=== PATIENT | male | born 1960 | race Caucasian/White ===

== ENCOUNTER 2018-09-25 16:01 | Emergency (ER) | payer MEDICARE ==
[2018-09-25 16:15] VITALS: O2SAT 98
[2018-09-25] MEDS ORDERED: Catapres 0.1 MG PO ONE (16:22)
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
[2018-09-25] MEDS ORDERED: Catapres 0.1 MG ONE (16:24)
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
[2018-09-25 17:05] VITALS: BP 152/94; PULSE 72
== END 2018-09-25 17:27 | disposition home or self-care (01) ==
LOC: ED 16:01
DX: I10 Essential (primary) hypertension (principal); I16.0 Hypertensive urgency; J44.9 Chronic obstructive pulmonary disease, unspecified; E11.9 Type 2 diabetes mellitus without complications; Z87.442 Personal history of urinary calculi; Z79.899 Other long term (current) drug therapy; Z95.0 Presence of cardiac pacemaker
CPT/HCPCS: 70450; 82962; 99284; A9270-GY

== ENCOUNTER 2018-12-26 22:30 | Emergency (ER) | payer MEDICARE ==
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
[2018-12-26] MEDS ORDERED: XYLOCAINE 1%/Epi 1:100000 MDV 20 ML ONE (22:47)
[2018-12-26] MEDS ORDERED: NORCO 5/325 MG PO ONE (23:05)
[2018-12-26] MEDS ORDERED: KEFLEX 500 MG PO ONE (23:05)
[2018-12-26] MEDS ORDERED: KEFLEX 500 MG ONE (23:25)
[2018-12-26] MEDS ORDERED: NORCO 5/325 MG ONE (23:26)
[2018-12-26] MEDS ORDERED: Adacel Vial IM ONE ×2 (23:37→23:45)
[2018-12-27 00:19] VITALS: BP 129/67; PULSE 79; O2SAT 98
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
== END 2018-12-27 00:18 | disposition home or self-care (01) ==
LOC: ED 22:30
DX: S61.421A Laceration with foreign body of right hand, initial encounter (principal); S64.91XA Injury of unspecified nerve at wrist and hand level of right arm, initial encounter; W22.8XXA Striking against or struck by other objects, initial encounter
CPT/HCPCS: 12001; 73130; 90471; 90715; 99284; A9270-GY

== ENCOUNTER 2019-01-02 20:54 | Observation (INO) | payer MEDICARE ==
--- NOTE | 2019-01-02 23:16 | ERPHSYRPT ---
- History of Present Illness Time Seen by Provider: 01/02/19 23:16 Source: patient, family Exam Limitations: no limitations Physician History: 58 y/o right handed diabetic white male known to be due to last visit on . i treated him here in this ED. Because of his diabetes and the type of wound pt sustained to right hand, i opted to not close right hand wound tightly only using a single mid lac staple. . no retained fb seen on that xray after wooden splinter. pt was given im injection of antibx and sent home with instructions to milk wound and compress pocket 2 to 3 times daily. no ointments or creams and take meds as prescribed. he was told to return to ED if sx worsened. he states he has increased redness, swelling and noticed pus. Timing/Duration: day(s) (couple of days) Severity: moderate Modifying Factors: Improves With: movement Associated Symptoms: No nausea, No vomiting, No abdominal pain, No shortness of breath, No chills, No fever, No malaise, No syncope Allergies/Adverse Reactions: digoxin Allergy (Mild, Verified 12/26/18 22:55) Home Medications: Amlodipine Besylate 2.5 mg PO DAILY 08/10/13 [History] Escitalopram Oxalate [Lexapro] 20 mg PO DAILY 09/25/18 [History] Gabapentin 300 mg PO DAILY 09/25/18 [History] Linagliptin [Tradjenta] 5 mg PO DAILY 09/25/18 [History] glipiZIDE [Glipizide] 5 mg PO DAILY 09/25/18 [History] Hx Tetanus, Diphtheria Vaccination/Date Given: No Hx Influenza Vaccination/Date Given: Yes Hx Pneumococcal Vaccination/Date Given: No - Review of Systems Constitutional: No Symptoms Eyes: No Symptoms Ears, Nose, & Throat: No Symptoms Respiratory: No Symptoms Cardiac: No Symptoms Abdominal/Gastrointestinal: No Symptoms Genitourinary Symptoms: No Symptoms Musculoskeletal: No Symptoms Skin: Cellulitis (right hand), Induration, Other (swelling right hand) Neurological: No Symptoms Psychological: No Symptoms Endocrine: No Symptoms Hematologic/Lymphatic: No Symptoms Immunological/Allergic: No Symptoms All Other Systems: Reviewed and Negative - Past Medical History Pertinent Past Medical History: Yes Neurological History: Stroke ENT History: No Pertinent History Cardiac History: Arrhythmia Respiratory History: COPD Endocrine Medical History: Diabetes Type II Musculoskeletal History: No Pertinent History GI Medical History: No Pertinent History History: Other Psycho-Social History: No Pertinent History Male Reproductive Disorders: No Pertinent History Other Medical History: kidney stone - Past Surgical History Past Surgical History: Yes Neuro Surgical History: No Pertinent History Cardiac: Pacemaker, Other Respiratory: No Pertinent History Gastrointestinal: No Pertinent History Genitourinary: No Pertinent History Musculoskeletal: No Pertinent History Male Surgical History: No Pertinent History Other Surgical History: hernia repair, HEART SURGERY WHEN HE WAS 6YRS OLD - Social History Smoking Status: Never smoker Exposure to second hand smoke: Yes Drug Use: none Patient Lives Alone: Yes - Nursing Vital Signs Nursing Vital Signs: Initial Vital Signs Pulse Rate 86 01/02/19 23:13 Respiratory Rate 16 01/02/19 23:13 Blood Pressure 180/90 01/02/19 23:13 O2 Sat by Pulse Oximetry 97 01/02/19 23:13 Pain Scale Pain Intensity 8 - Physical Exam General Appearance: no apparent distress, alert Eye Exam: PERRL/EOMI, eyes nml inspection Ears, Nose, Throat Exam: normal ENT inspection, moist mucous membranes Neck Exam: normal inspection, non-tender, supple, full range of motion Respiratory Exam: normal breath sounds, lungs clear, airway intact, No chest tenderness, No respiratory distress Cardiovascular Exam: regular rate/rhythm, normal heart sounds, normal peripheral pulses Gastrointestinal/Abdomen Exam: soft, normal bowel sounds, No tenderness, No guarding Rectal Exam: not done Back Exam: normal inspection, normal range of motion, No CVA tenderness, No vertebral tenderness Extremity Exam: pelvis stable, inflammation, swelling, tenderness, other (above right hand with localized cellulitis. single staple removed and pus expressed out. 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, normal mood/affect Skin Exam: other (redness, swelling, cellulitis right hand) SpO2 Interpretation: normal O2 Delivery: Room Air Ordered Tests: Active Orders 24 hr Category Date Time Status IV Insertion STAT Care 01/02/19 23:43 Active Wound Care STAT Care 01/02/19 23:39 Active CULTURE,WOUND Stat Lab 01/03/19 01:41 Ordered Transfer Order Routine Transfer 01/03/19 Ordered Medication Summary Discontinued Medications Generic Name Dose Route Start Last Admin Trade Name Freq PRN Reason Stop Dose Admin Gabapentin 300 mg 01/03/19 02:42 Neurontin 300 Mg PO 01/03/19 02:43 STAT ONE Hydromorphone HCl 1 mg 01/02/19 23:43 01/03/19 02:05 Hydromorphone 1 Mg/Ml Ampule IV 01/02/19 23:44 Not Given STAT ONE Hydromorphone HCl Confirm 01/03/19 00:59 Hydromorphone 1 Mg/Ml Ampule Administered 01/03/19 01:00 Dose 1 mg .ROUTE .STK-MED ONE Metronidazole 500 mg in 100 mls @ 200 mls/hr 01/02/19 23:40 01/03/19 02:03 Flagyl 500 Mg Ivpb IV 01/03/19 00:09 200 mls/hr STAT STA 200 mls/hr Administration Sodium Chloride 1,000 mls @ 999 mls/hr 01/02/19 23:43 01/03/19 01:10 Sodium Chloride 0.9% 1000 Ml IV 01/03/19 00:43 999 mls/hr .Q1H1M STA Administration Ampicillin Sodium/Sulbactam Sodium 3 gm in 100 mls @ 200 mls/hr 01/02/19 23: 40 01/03/19 01:13 Unasyn 3gm / Nacl 100ml IV 01/03/19 00:09 200 mls/hr STAT STA 200 mls/hr Administration Sodium Chloride Confirm 01/03/19 00:59 Sodium Chloride 0.9% 1000 Ml Administered 01/03/19 01:00 Dose 1,000 mls @ ud .ROUTE .STK-MED ONE Ampicillin Sodium/Sulbactam Sodium Confirm 01/03/19 01:00 Unasyn 3gm / Nacl 100ml Administered 01/03/19 01:01 Dose 3 gm in 100 mls @ ud .ROUTE .STK-MED ONE Metronidazole Confirm 01/03/19 01:55 Flagyl 500 Mg Ivpb Administered 01/03/19 01:56 Dose 500 mg in 100 mls @ ud IV .STK-MED ONE Morphine Sulfate 4 mg 01/03/19 01:17 01/03/19 02:01 Morphine Sulfate 4 Mg Inj IV 01/03/19 01:18 4 mg STAT ONE Administration Morphine Sulfate Confirm 01/03/19 01:54 Morphine Sulfate 4 Mg Inj Administered 01/03/19 01:55 Dose 4 mg .ROUTE .STK-MED ONE Ondansetron HCl 4 mg 01/02/19 23:43 01/03/19 01:10 Zofran 4 Mg/2 Ml Vial IV 01/02/19 23:44 4 mg STAT ONE Administration Ondansetron HCl Confirm 01/03/19 00:59 Zofran 4 Mg/2 Ml Vial Administered 01/03/19 01:00 Dose 4 mg .ROUTE .STK-MED ONE Lab/Rad Data: Laboratory Result Diagrams 01/02/19 00:45 01/02/19 00:45 Laboratory Results 01/02/19 01/02/19 Range/Units 00:45 00:45 WBC 7.8 (4.0-10.5) K/mm3 RBC 4.34 (4.1-5.6) M/mm3 Hgb 12.1 L (12.5-18.0) gm/dl Hct 37.1 L (42-50) % MCV 85.5 (78-100) fl MCH 27.8 (26-32) pg MCHC 32.6 (32-36) g/dl RDW 14.0 (11.5-14.0) % Plt Count 329 (150-450) K/mm3 MPV 10.2 H (6-9.5) fl Sodium 143 (137-145) mmol/L Potassium 3.6 (3.5-5.1) mmol/L Chloride 106 (98-107) mmol/L Carbon Dioxide 27 (22-30) mmol/L Anion Gap 13.7 (5-15) MEQ/L BUN 13 (9-20) mg/dL Creatinine 0.75 (0.66-1.25) mg/dL Estimated GFR > 60.0 ML/MIN Glucose 202 H (74-106) mg/dL Calcium 9.6 (8.4-10.2) mg/dL Total Bilirubin 0.50 (0.2-1.3) mg/dL AST 20 (17-59) U/L ALT 28 (0-50) U/L Alkaline Phosphatase 88 (38-126) U/L Serum Total Protein 7.5 (6.3-8.2) g/dL Albumin 3.9 (3.5-5.0) g/dL - Progress Progress: improved Progress Note: 01/03/19 02:[address] guzman. i reviewed pt hx, condition, lab results. she accepts pt for observation Discussed with .: Veena Counseled pt/family regarding: lab results, diagnosis - Departure Departure Disposition: Observation Clinical Impression: Cellulitis and abscess of hand Condition: Stable Critical Care Time: No Referrals: NATHALY LAZAR [Primary Care Provider] -
[2019-01-02] MEDS ORDERED: Unasyn 3GM / NaCl 100ML 3 GM/100 ML IVPB IV STA (23:40)
[2019-01-02] MEDS ORDERED: FLAGYL 500 MG IVPB 500 MG/100 ML BAG IV STA (23:40)
[2019-01-02] MEDS ORDERED: Hydromorphone 1 mg/ml Ampule IV ONE (23:43)
[2019-01-02] MEDS ORDERED: Zofran 4 MG/2 ML VIAL IV ONE (23:43)
[2019-01-02] MEDS ORDERED: Sodium Chloride 0.9% 1000 ML 1,000 ML IV STA (23:43)
[2019-01-03] MEDS ORDERED: Sodium Chloride 0.9% 1000 ML 1,000 ML ONE (00:59)
[2019-01-03] MEDS ORDERED: Hydromorphone 1 mg/ml Ampule ONE (00:59)
[2019-01-03] MEDS ORDERED: Zofran 4 MG/2 ML VIAL ONE (00:59)
[2019-01-03] MEDS ORDERED: Unasyn 3GM / NaCl 100ML 3 GM/100 ML IVPB ONE (01:00)
[2019-01-03] MEDS ORDERED: MORPHINE SULFATE 4 MG INJ IV ONE (01:17)
[2019-01-03 01:26] LABS: Hematocrit 37.1 % (42-50); Hemoglobin 12.1 gm/dl (12.5-18.0); Mean Cell Volume 85.5 fl (78-100); Mean Corpuscular Hgb Concent. 32.6 g/dl (32-36); Mean Platelet Volume 10.2 fl (6-9.5); Platelet Count 329 K/mm3 (150-450); Red Blood Count 4.34 M/mm3 (4.1-5.6); White Blood Count 7.8 K/mm3 (4.0-10.5)
[2019-01-03 01:39] LABS: ALBUMIN 3.9 g/dL (3.5-5.0); ALKALINE PHOSPHATASE 88 U/L (38-126); ANION GAP 13.7 MEQ/L (5-15); BLOOD UREA NITROGEN 13 mg/dL (9-20); CHLORIDE 106 mmol/L (98-107); Calcium 9.6 mg/dL (8.4-10.2); Carbon Dioxide 27 mmol/L (22-30); Creatinine 1 0.75 mg/dL (0.66-1.25); Glucose 202 mg/dL (74-106); Potassium 3.6 mmol/L (3.5-5.1); SGOT/AST 20 U/L (17-59); SGPT/ALT 28 U/L (0-50); SODIUM 143 mmol/L (137-145); Total Protein 7.5 g/dL (6.3-8.2)
[2019-01-03] MEDS ORDERED: MORPHINE SULFATE 4 MG INJ ONE (01:54)
[2019-01-03] MEDS ORDERED: FLAGYL 500 MG IVPB 500 MG/100 ML BAG IV ONE (01:55)
[2019-01-03 02:04] LABS: Mean Corpuscular Hemoglobin 27.8 pg (26-32)
[2019-01-03] MEDS ORDERED: NEURONTIN 300 MG PO ONE (02:42)
[2019-01-03] MEDS ORDERED: MORPHINE SULFATE 4 MG INJ IV PRN (03:05)
[2019-01-03] MEDS ORDERED: TYLENOL 325 MG PO PRN (03:05)
[2019-01-03] MEDS ORDERED: Sodium Chloride 0.9% 1000 ML 1,000 ML IV SCH (03:05)
[2019-01-03] MEDS ORDERED: Zofran 4 MG/2 ML VIAL IV PRN (03:05)
[2019-01-03 03:55] LABS: Eosinophil 4 % (0.00-3.0); Lymphocytes 21 % (24-44); Monocyte 8 % (0.0-12.0); Neutrophils 67 % (36.-66.); Platelet Estimate NORMAL (NORMAL); Total Cells Counted 100
[2019-01-03] MEDS ORDERED: FLAGYL 500 MG IVPB 500 MG/100 ML BAG IV SCH (06:00)
[2019-01-03 06:20] LABS: Hemoglobin 10.6 gm/dl (12.5-18.0); Mean Cell Volume 86.2 fl (78-100); Mean Corpuscular Hgb Concent. 32.1 g/dl (32-36); Mean Platelet Volume 9.8 fl (6-9.5); Platelet Count 304 K/mm3 (150-450); Red Blood Count 3.83 M/mm3 (4.1-5.6); Red Cell Distribution Width 13.8 % (11.5-14.0); White Blood Count 7.4 K/mm3 (4.0-10.5)
[2019-01-03 06:23] LABS: Mean Corpuscular Hemoglobin 27.6 pg (26-32)
[2019-01-03] MEDS: Unasyn 3GM / NaCl 100ML 3 GM/100 ML IVPB IV SCH ×2 (06:25→11:36)
[2019-01-03 07:03] LABS: ALBUMIN 3.5 g/dL (3.5-5.0); ALKALINE PHOSPHATASE 77 U/L (38-126); ANION GAP 13.5 MEQ/L (5-15); BLOOD UREA NITROGEN 13 mg/dL (9-20); CHLORIDE 108 mmol/L (98-107); Calcium 8.8 mg/dL (8.4-10.2); Carbon Dioxide 26 mmol/L (22-30); Creatinine 1 0.76 mg/dL (0.66-1.25); Glucose 159 mg/dL (74-106); SGOT/AST 19 U/L (17-59); SGPT/ALT 25 U/L (0-50); SODIUM 143 mmol/L (137-145); Total Protein 6.7 g/dL (6.3-8.2)
[2019-01-03 07:19] LABS: ATYPICAL LYMPHS 2 %; BAND 5 % (0.0-2.0); Basophil 1 % (0.0-1.0); Eosinophil 8 % (0.00-3.0); Lymphocytes 26 % (24-44); Monocyte 4 % (0.0-12.0); Neutrophils 54 % (36.-66.); Total Cells Counted 100
[2019-01-03 07:20] LABS: Platelet Estimate NORMAL (NORMAL)
[2019-01-03 07:21] LABS: Granulocyte Absolute (ANC) 4.36 (1.4-6.9)
[2019-01-03] MEDS ORDERED: NovoLOG Insulin SQ PRN (09:27)
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
[2019-01-03] MEDS ORDERED: NEURONTIN 300 MG PO SCH (10:00)
[2019-01-03] MEDS ORDERED: Januvia 50 MG PO SCH (12:00)
[2019-01-03] MEDS ORDERED: Lexapro 10 MG PO SCH (12:00)
[2019-01-03] MEDS ORDERED: NORVASC 5 MG PO SCH (12:00)
[2019-01-03 12:43] VITALS: BP 158/80; PULSE 71; O2SAT 95
[2019-01-03] MEDS ORDERED: Glucotrol 5 MG PO SCH (16:30)
[2019-01-04] MEDS ORDERED: NON-FORMULARY ITEM (Amlodipine Besylate [Norvasc] 2.5 MG) PO SCH (10:00)
[2019-01-04] MEDS ORDERED: NON-FORMULARY ITEM (Escitalopram Oxalate [Lexapro] 20 MG) PO SCH (10:00)
== END 2019-01-03 13:30 | disposition home or self-care (01) ==
LOC: ED 20:54 → MED SURG 01-03 02:52
PROVIDERS: ADMIT Internal Medicine; ATTEND Internal Medicine
DX: L03.113 Cellulitis of right upper limb (principal); L02.511 Cutaneous abscess of right hand; E11.9 Type 2 diabetes mellitus without complications; I10 Essential (primary) hypertension; Z60.9 Problem related to social environment, unspecified; F17.200 Nicotine dependence, unspecified, uncomplicated; Z79.899 Other long term (current) drug therapy
CPT/HCPCS: 36000; 36415; 80053; 82962; 85025; 87040; 87070; 87077; 96374; 99285; G0378; J0295; J1170; J2270; J2405; A9270-GY

== ENCOUNTER 2019-02-10 17:16 | Emergency (ER) | payer MEDICARE ==
[2019-02-10 17:57] LABS: BASOPHIL % 1.6 % (0.0-0.4); Basophil (Absolute #) 0.12 (0-0.4); Eosinophil % 5.2 % (0.00-5.0); Eosinophil (Absolute #) 0.38 (0-0.5); Granulocyte Absolute (ANC) 3.97 (1.4-6.9); Granulocytes % 54.5 % (36.0-66.0); Hematocrit 41.8 % (42-50); Hemoglobin 14.1 gm/dl (12.5-18.0); Lymphocyte (Absolute #) 2.07 (1.0-4.6); Lymphocytes % 28.4 % (24.0-44.0); Mean Cell Volume 85.7 fl (78-100); Mean Corpuscular Hemoglobin 28.9 pg (26-32); Mean Corpuscular Hgb Concent. 33.7 g/dl (32-36); Mean Platelet Volume 10.4 fl (6-9.5); Monocyte (Absolute #) 0.75 (0.0-1.3); Monocytes % 10.3 % (0.0-12.0); Platelet Count 243 K/mm3 (150-450); Red Blood Count 4.88 M/mm3 (4.1-5.6); Red Cell Distribution Width 15.6 % (11.5-14.0); White Blood Count 7.3 K/mm3 (4.0-10.5)
--- NOTE | 2019-02-10 18:00 | ERPHSYRPT ---
- History of Present Illness Source: patient Exam Limitations: no limitations Patient Subjective Stated Complaint: Pt states "About 3 oclock, I went to the [facility] and that lady said I needed to come to the ER. I went home, and had my dog to take care of and then I came here." Triage Nursing Assessment: Pt presetned through the front and placed in room 5. PT is alert and oriented X 3, skin pwd Pt ambulates with an upright steady gait, able to speak in clear full sentences. Pt is speaking non stop. PT in no apparent respiratory distress. Timing/Duration: day(s) (several days since his discharge to home from hospital ), intermittent, worse Activities at Onset: none Severity of Dyspnea-Max: mild Severity of Dyspnea-Current: mild Possible Cause: occasional episodes Modifying Factors: Improves With: coughing Associated Symptoms: cough, No chest pain/discomfort, No weakness Hx Tetanus, Diphtheria Vaccination/Date Given: Yes Hx Influenza Vaccination/Date Given: Yes Hx Pneumococcal Vaccination/Date Given: Yes Immunizations Up to Date: Yes <GERALDINE REINA - Last Filed: 02/10/19 18:52> <LORA BAEZA - Last Filed: 02/10/19 20:41> - History of Present Illness Time Seen by Provider: 02/10/19 17:25 Physician History: 58 y/o diabetic white male with htn and cardiac pacemaker presents with soa for several days. pt went to [facility]. pt was coughing up yellow sputum. pt told to go directly to ED. however, pt went home and came to ED on his own 2.5 hours later. pt does not appear to be in any distress. in addition, he is talking nonstop. pt denies cp, denies abd pain. pt does have a sig cardiac hx. he has a cardiac pacemaker in place. (GERALDINE REINA) Allergies/Adverse Reactions: digoxin Allergy (Mild, Verified 01/03/19 07:48) Home Medications: Escitalopram Oxalate [Lexapro] 20 mg PO DAILY 09/25/18 [History] Gabapentin 300 mg PO DAILY 09/25/18 [History] Linagliptin [Tradjenta] 5 mg PO DAILY 09/25/18 [History] glipiZIDE [Glipizide] 5 mg PO DAILY 09/25/18 [History] - Review of Systems Constitutional: No Symptoms Eyes: No Symptoms Ears, Nose, & Throat: No Symptoms Respiratory: Cough, Dyspnea Cardiac: No Symptoms Abdominal/Gastrointestinal: No Symptoms Genitourinary Symptoms: No Symptoms Musculoskeletal: No Symptoms Skin: No Symptoms Neurological: No Symptoms Psychological: No Symptoms Endocrine: No Symptoms Hematologic/Lymphatic: No Symptoms Immunological/Allergic: No Symptoms All Other Systems: Reviewed and Negative <GERALDINE REINA - Last Filed: 02/10/19 18:52> - Past Medical History Pertinent Past Medical History: Yes Neurological History: Stroke ENT History: No Pertinent History Cardiac History: Arrhythmia Respiratory History: No Pertinent History Endocrine Medical History: Diabetes Type II Musculoskeletal History: No Pertinent History GI Medical History: No Pertinent History History: No Pertinent History Psycho-Social History: No Pertinent History Male Reproductive Disorders: No Pertinent History Other Medical History: Patient states he needs a heart transplant. - Past Surgical History Past Surgical History: Yes Neuro Surgical History: No Pertinent History Cardiac: Other, Pacemaker Respiratory: No Pertinent History Gastrointestinal: No Pertinent History Genitourinary: No Pertinent History Musculoskeletal: No Pertinent History Male Surgical History: No Pertinent History Other Surgical History: hernia repair, HEART SURGERY WHEN HE WAS 6YRS OLD - Social History Smoking Status: Never smoker Exposure to second hand smoke: Yes Drug Use: none Patient Lives Alone: No <GERALDINE REINA - Last Filed: 02/10/19 18:52> - Physical Exam General Appearance: no apparent distress, alert Eye Exam: PERRL/EOMI, eyes nml inspection Ears, Nose, Throat Exam: hearing grossly normal, normal ENT inspection, normal pharynx Neck Exam: normal inspection, supple, full range of motion, No non-tender Respiratory Exam: normal breath sounds, lungs clear, airway intact, No chest tenderness, No respiratory distress Cardiovascular/Chest Exam: normal heart sounds, regular rate/rhythm, normal peripheral pulses Abdominal/Gastrointestinal Exam: soft, normal bowel sounds, No tenderness Rectal Exam: not done Extremity Exam: non-tender, normal range of motion, normal inspection Neurologic Exam: alert, oriented x 3, 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 no acute ischemia. improved over comparison ekg dated 08/10/13) <GERALDINE REINA - Last Filed: 02/10/19 18:52> - Course Nursing assessment & vital signs reviewed: Yes - CT Exams Chest CT Interpretation: Discussed w/radiologist (CT chest: Impression: No comparisons. Mild respiration artifact limits PE evaluation. No obvious PE. Cardiomegaly and moderate bilateral effusions. Rule out CHF. Mild fatty liver. ) <LORA BAEZA - Last Filed: 02/10/19 20:41> Ordered Tests: Active Orders 24 hr Category Date Time Status Long Lines Operator STAT Care 02/10/19 17:49 Active EKG-ER Only STAT Care 02/10/19 17:48 Active IV Insertion STAT Care 02/10/19 17:48 Active Oxygen-ED Only Nasal Cannula 2 lpm Care 02/10/19 18:29 Active Pulse Oximetry (ED) STAT Care 02/10/19 17:48 Active CHEST 1 VIEW (PORTABLE) Stat Exams 02/10/19 18:00 Taken CHEST WITH CONTRAST [CT] Stat Exams 02/10/19 19:20 Taken CBC W DIFF Stat Lab 02/10/19 17:47 Completed CMP Stat Lab 02/10/19 17:47 Completed D-DIMER QUANTITATION Stat Lab 02/10/19 17:47 Completed NT PRO BNP Stat Lab 02/10/19 17:47 Completed PROTIME WITH INR Stat Lab 02/10/19 17:47 Completed TROPONIN Q3H Lab 02/10/19 17:47 Completed TROPONIN Q3H Lab 02/10/19 21:00 Ordered TROPONIN Q3H Lab 02/11/19 00:00 Ordered TROPONIN Q3H Lab 02/11/19 03:00 Ordered TROPONIN Q3H Lab 02/11/19 06:00 Ordered UA W/RFX UR CULTURE Stat Lab 02/10/19 18:00 Completed Medication Summary Generic Name Dose Route Start Last Admin Trade Name Elaine PRN Reason Stop Dose Admin Sodium Chloride 1,000 mls @ 50 mls/hr 02/10/19 18:45 02/10/19 19:25 Sodium Chloride 0.9% 1000 Ml IV 03/12/19 18:44 50 mls/hr .Q20H COCO Administration Discontinued Medications Generic Name Dose Route Start Last Admin Trade Name Elaine PRN Reason Stop Dose Admin Furosemide 40 mg 02/10/19 18:44 02/10/19 20:02 Lasix 40 Mg/4 Ml IV 02/10/19 18:45 40 mg STAT ONE Administration Furosemide Confirm 02/10/19 20:01 Lasix 40 Mg/4 Ml Administered 02/10/19 20:02 Dose 40 mg .ROUTE .STK-MED ONE Morphine Sulfate 4 mg 02/10/19 18:29 02/10/19 19:28 Morphine Sulfate 4 Mg Inj IV 02/10/19 18:30 4 mg STAT ONE Administration Morphine Sulfate Confirm 02/10/19 18:57 Morphine Sulfate 4 Mg Inj Administered 02/10/19 18:58 Dose 4 mg .ROUTE .STK-MED ONE Ondansetron HCl 4 mg 02/10/19 20:24 02/10/19 20:27 Zofran 4 Mg/2 Ml Vial IV 02/10/19 20:25 4 mg STAT ONE Administration Ondansetron HCl Confirm 02/10/19 20:25 Zofran 4 Mg/2 Ml Vial Administered 02/10/19 20:26 Dose 4 mg .ROUTE .STK-MED ONE Lab/Rad Data: Laboratory Result Diagrams 02/10/19 17:47 02/10/19 17:47 Laboratory Results 02/10/19 02/10/19 02/10/19 Range/Units 18:00 17:47 17:47 WBC (4.0-10.5) K/mm3 RBC (4.1-5.6) M/mm3 Hgb (12.5-18.0) gm/dl Hct (42-50) % MCV (78-100) fl MCH (26-32) pg MCHC (32-36) g/dl RDW (11.5-14.0) % Plt Count (150-450) K/mm3 MPV (6-9.5) fl Gran % (36.0-66.0) % Eos # (Auto) (0-0.5) Absolute Lymphs (auto) (1.0-4.6) Absolute Monos (auto) (0.0-1.3) Lymphocytes % (24.0-44.0) % Monocytes % (0.0-12.0) % Eosinophils % (0.00-5.0) % Basophils % (0.0-0.4) % Absolute Granulocytes (1.4-6.9) Basophils # (0-0.4) PT 14.0 H (8.83-12.87) SECONDS INR 1.23 (0.8-3.0) D-Dimer 2610 H* (215-500) ng/mL Sodium (137-145) mmol/L Potassium (3.5-5.1) mmol/L Chloride (98-107) mmol/L Carbon Dioxide (22-30) mmol/L Anion Gap (5-15) MEQ/L BUN (9-20) mg/dL Creatinine (0.66-1.25) mg/dL Estimated GFR ML/MIN Glucose (74-106) mg/dL Calcium (8.4-10.2) mg/dL Total Bilirubin (0.2-1.3) mg/dL AST (17-59) U/L ALT (0-50) U/L Alkaline Phosphatase (38-126) U/L Troponin I 0.062 H* (0.000-0.034) ng/mL NT-Pro-B Natriuret Pep (0-900) pg/mL Serum Total Protein (6.3-8.2) g/dL Albumin (3.5-5.0) g/dL Urine Color LORENZO (YELLOW) Urine Appearance CLOUDY (CLEAR) Urine pH 5.0 (5-6) Ur Specific Dawson 1.036 (1.005-1.025) Urine Protein >=500 (Negative) Urine Ketones NEGATIVE (NEGATIVE) Urine Blood NEGATIVE (0-5) Godfrey/ul Urine Nitrite NEGATIVE (NEGATIVE) Urine Bilirubin NEGATIVE (NEGATIVE) Urine Urobilinogen 2 (0-1) mg/dL Ur Leukocyte Esterase NEGATIVE (NEGATIVE) Urine WBC (Auto) 3-5 (0-5) /HPF Urine RBC (Auto) 6-10 (0-2) /HPF U Hyaline Cast (Auto) 3-5 (0-2) /LPF U Epithel Cells (Auto) MODERATE (FEW) /HPF Urine Bacteria (Auto) FEW (NEGATIVE) /HPF Calcium Oxalate Crystal >100 (NEGATIVE) /HPF Other Casts (Auto) 2-5 (NEGATIVE) /LPF Urine Mucus (Auto) MANY (NEGATIVE) /HPF Urine Culture Reflexed NO (NO) Urine Glucose >=500 (NEGATIVE) mg/dL 02/10/19 02/10/19 Range/Units 17:47 17:47 WBC 7.3 (4.0-10.5) K/mm3 RBC 4.88 (4.1-5.6) M/mm3 Hgb 14.1 (12.5-18.0) gm/dl Hct 41.8 L (42-50) % MCV 85.7 (78-100) fl MCH 28.9 (26-32) pg MCHC 33.7 (32-36) g/dl RDW 15.6 H (11.5-14.0) % Plt Count 243 (150-450) K/mm3 MPV 10.4 H (6-9.5) fl Gran % 54.5 (36.0-66.0) % Eos # (Auto) 0.38 (0-0.5) Absolute Lymphs (auto) 2.07 (1.0-4.6) Absolute Monos (auto) 0.75 (0.0-1.3) Lymphocytes % 28.4 (24.0-44.0) % Monocytes % 10.3 (0.0-12.0) % Eosinophils % 5.2 H (0.00-5.0) % Basophils % 1.6 (0.0-0.4) % Absolute Granulocytes 3.97 (1.4-6.9) Basophils # 0.12 (0-0.4) PT (8.83-12.87) SECONDS INR (0.8-3.0) D-Dimer (215-500) ng/mL Sodium 142 (137-145) mmol/L Potassium 3.6 (3.5-5.1) mmol/L Chloride 106 (98-107) mmol/L Carbon Dioxide 27 (22-30) mmol/L Anion Gap 12.9 (5-15) MEQ/L BUN 13 (9-20) mg/dL Creatinine 1.01 (0.66-1.25) mg/dL Estimated GFR > 60.0 ML/MIN Glucose 257 H (74-106) mg/dL Calcium 9.7 (8.4-10.2) mg/dL Total Bilirubin 1.30 (0.2-1.3) mg/dL AST 26 (17-59) U/L ALT 26 (0-50) U/L Alkaline Phosphatase 88 (38-126) U/L Troponin I (0.000-0.034) ng/mL NT-Pro-B Natriuret Pep 4830 H (0-900) pg/mL Serum Total Protein 7.7 (6.3-8.2) g/dL Albumin 4.1 (3.5-5.0) g/dL Urine Color (YELLOW) Urine Appearance (CLEAR) Urine pH (5-6) Ur Specific Dawson (1.005-1.025) Urine Protein (Negative) Urine Ketones (NEGATIVE) Urine Blood (0-5) Godfrey/ul Urine Nitrite (NEGATIVE) Urine Bilirubin (NEGATIVE) Urine Urobilinogen (0-1) mg/dL Ur Leukocyte Esterase (NEGATIVE) Urine WBC (Auto) (0-5) /HPF Urine RBC (Auto) (0-2) /HPF U Hyaline Cast (Auto) (0-2) /LPF U Epithel Cells (Auto) (FEW) /HPF Urine Bacteria (Auto) (NEGATIVE) /HPF Calcium Oxalate Crystal (NEGATIVE) /HPF Other Casts (Auto) (NEGATIVE) /LPF Urine Mucus (Auto) (NEGATIVE) /HPF Urine Culture Reflexed (NO) Urine Glucose (NEGATIVE) mg/dL - Progress Air Movement: good Blood Culture(s) Obtained: No Antibiotics given: No Counseled pt/family regarding: lab results, diagnosis, rad results <GERALDINE REINA - Last Filed: 02/10/19 18:52> - Progress Progress: improved <LORA BAEZA - Last Filed: 02/10/19 20:41> - Progress Progress Note: 02/10/19 18:53 pt signed out and transferred care to dr. baeza at shift change. i reviewed pt hx, condition, lab, ekg and cxr results with him. he is aware of pts remaining labs and cta chest. he accepts pt in transfer (GERALDINE REINA) 02/10/19 20:38 This is a 58-year-old white male arrives with complaint of shortness of breath for several days he has she states she's been short of breath since released from [facility] but has been, worse the last several days. Patient has a history of CVA, arrhythmia, diabetes, pacemaker, he apparently has had a heart surgery at 6 years old. Patient arrives with a temperature 97.6 pulse 76 respiration 22 blood pressure 95 blood pressure on arrival 173/104 however this is improved. Patient with EKG which shows a paced rhythm 72 beats per minute Patient with a chest x-ray which shows increased interstitial lung markings and cardiomegaly. Patient with the CT of the chest which was obtained secondary to increased d- dimer. Patient CT chest limited study due 2 respiration artifact no obvious PE there is cardiomegaly and bibasilar effusions in the concerning for possible CHF. Patient's labs White blood cell 7.3 hemoglobin 14.1 hematocrit 41.8 platelets 243. D-dimer 2610. Troponin 0.062. BNP elevated at 4830. Chemistry sodium 142 potassium 3.6 chloride 106 bicarbonate 27 BUN 13 creatinine 1.01 glucose 257. Impression 1 shortness of breath 2. CHF 3. Elevated troponin. Plan patient was given Lasix [address] Reina. Will also give patient aspirin 324 mg orally. I discussed the case initially with Dr. Witt he felt that the hospitalist. Admit the patient to [facility] and he would be happy to consult. I discussed the case with Dr. Bray. And he has accepted the patient for transfer to [facility]. (LORA BAEZA) <GERALDINE REINA - Last Filed: 02/10/19 18:52> - Departure Departure Disposition: Transfer Critical Care Time: No <LORA BAEZA - Last Filed: 02/10/19 20:41> - Departure Clinical Impression: Shortness of breath, increased troponin CHF (congestive heart failure) Qualifiers: Heart failure type: unspecified Heart failure chronicity: unspecified Qualified Code(s): I50.9 - Heart failure, unspecified Condition: Fair Referrals: NATHALY LAZAR [Primary Care Provider] - Instructions: Heart Failure
[2019-02-10 18:04] LABS: INR 1.23 (0.8-3.0)
[2019-02-10 18:17] LABS: ALBUMIN 4.1 g/dL (3.5-5.0); ALKALINE PHOSPHATASE 88 U/L (38-126); ANION GAP 12.9 MEQ/L (5-15); BLOOD UREA NITROGEN 13 mg/dL (9-20); CHLORIDE 106 mmol/L (98-107); Calcium 9.7 mg/dL (8.4-10.2); Carbon Dioxide 27 mmol/L (22-30); Creatinine 1 1.01 mg/dL (0.66-1.25); Glucose 257 mg/dL (74-106); NT PRO BNP 4830 pg/mL (0-900); Potassium 3.6 mmol/L (3.5-5.1); SGOT/AST 26 U/L (17-59); SGPT/ALT 26 U/L (0-50); SODIUM 142 mmol/L (137-145); Total Protein 7.7 g/dL (6.3-8.2)
[2019-02-10] MEDS ORDERED: MORPHINE SULFATE 4 MG INJ IV ONE (18:29)
[2019-02-10] MEDS ORDERED: Lasix 40 MG/4 ML IV ONE (18:44)
[2019-02-10] MEDS ORDERED: Sodium Chloride 0.9% 1000 ML 1,000 ML IV SCH (18:45)
[2019-02-10] MEDS ORDERED: Sodium Chloride 0.9% 1000 ML 1,000 ML ONE (18:57)
[2019-02-10] MEDS ORDERED: MORPHINE SULFATE 4 MG INJ ONE (18:57)
[2019-02-10 19:34] LABS: Appearance CLOUDY (CLEAR); Bacteria FEW /HPF (NEGATIVE); Bilirubin NEGATIVE (NEGATIVE); Blood NEGATIVE Ery/ul (0-5); Epithelial Cells MODERATE /HPF (FEW); Glucose >=500 mg/dL (NEGATIVE); Ketones NEGATIVE (NEGATIVE); Leukocyte Esterase NEGATIVE (NEGATIVE); Mucus MANY /HPF (NEGATIVE); Nitrite NEGATIVE (NEGATIVE); Protein,Urine Dip >=500 (Negative); Specific Gravity 1.036 (1.005-1.025); Urobilinogen 2 mg/dL (0-1)
[2019-02-10 19:35] LABS: Calcium Oxalate Crystals >100 /HPF (NEGATIVE)
[2019-02-10] MEDS ORDERED: Lasix 40 MG/4 ML ONE (20:01)
[2019-02-10] MEDS ORDERED: Zofran 4 MG/2 ML VIAL IV ONE (20:24)
[2019-02-10] MEDS ORDERED: Zofran 4 MG/2 ML VIAL ONE (20:25)
[2019-02-10] MEDS ORDERED: BABY ASPIRIN 81 MG CHEW PO ONE (20:42)
[2019-02-10] MEDS ORDERED: BABY ASPIRIN 81 MG CHEW ONE (20:57)
[2019-02-10 21:34] VITALS: BP 166/95; PULSE 70; O2SAT 97
--- NOTE | 2019-02-11 08:35 | XRAY ---
Indication: Short of breath. Elevated d-dimer. Multiple contiguous axial images obtained through the chest using total 115 cc Isovue 370 contrast and PE protocol. Comparison: None There is satisfactory opacification of the pulmonary arteries. However mild respiration artifact limits evaluation for distal pulmonary embolus. No obvious pulmonary embolus. Heart is enlarged with a left-sided dual-lead pacemaker. Aorta is minimally etcher sclerotic without aneurysm/dissection. Small mediastinal lymph nodes and small bilateral hilar calcified nodes. No pathologic mediastinal/hilar lymphadenopathy. Examination of the lung parenchyma demonstrates moderate bilateral pleural effusions with minimal compressive atelectasis. Minimal scattered peripheral fibrosis/scarring bilaterally. No suspicious pulmonary mass or infiltrate. Bony thorax intact. Limited upper abdomen demonstrates a stomach distended with food/fluid. Mild diffuse fatty liver. Impression: 1. Pulmonary embolus evaluation limited by respiration artifact. No obvious pulmonary embolus. 2. Cardiomegaly and bilateral pleural effusions. Rule out cardiac decompensation. 3. Incidental fatty liver and evidence for old granulomatous disease. CT DI 22.57
--- NOTE | 2019-02-11 08:35 | XRAY ---
Indication: Short of breath. Comparison: None Portable chest demonstrates cardiomegaly with small bibasilar effusions concerning for cardiac decompensation. Incidental left dual-lead pacemaker and left suprahilar calcified node. Bony thorax intact.
== END 2019-02-10 22:25 | disposition short-term general hospital (02) ==
LOC: ED 17:16
DX: R06.02 Shortness of breath (principal); R74.8 Abnormal levels of other serum enzymes; I50.9 Heart failure, unspecified; I10 Essential (primary) hypertension
CPT/HCPCS: 36000; 36415; 71045; 71260; 80053; 81001; 83880; 84484; 85025; 85379; 85610; 93005; 93041; 94760; 96360; 96361; 96374; 96375; 99285; J1940; J2270; J2405; A9270-GY

== ENCOUNTER 2019-02-15 07:03 | Emergency (ER) | payer MEDICARE ==
[2019-02-15 07:17] VITALS: BP 163/96; PULSE 71; O2SAT 99
--- NOTE | 2019-02-15 07:35 | ERPHSYRPT ---
- History of Present Illness Time Seen by Provider: 02/15/19 07:32 Source: patient Exam Limitations: no limitations Patient Subjective Stated Complaint: Fell at home last night and took a gabapentin and when he woke this morning he was unable to put weight on his right foot, right foot and right lower leg extremely painful Triage Nursing Assessment: Pt brought by EMS, unable to place weight on right foot, painful with palpatation, hypertensive, pulses normal, capillary refill <3 , mild swelling to right lower leg and foot, no visible markings of injury Physician History: Fell at home last night when he woke this morning he was unable to put weight on his right foot, right foot and right lower leg extremely painful Method of Injury: fell Occurred: yesterday Severity of Pain-Max: moderate Severity of Pain-Current: moderate Lower Extremities Pain: foot: right, ankle: right Allergies/Adverse Reactions: digoxin Allergy (Mild, Verified 02/15/19 07:16) Home Medications: Escitalopram Oxalate [Lexapro] 20 mg PO DAILY 09/25/18 [History] Gabapentin 300 mg PO DAILY 09/25/18 [History] Linagliptin [Tradjenta] 5 mg PO DAILY 09/25/18 [History] glipiZIDE [Glipizide] 5 mg PO DAILY 09/25/18 [History] Hx Tetanus, Diphtheria Vaccination/Date Given: Yes Hx Influenza Vaccination/Date Given: Yes Hx Pneumococcal Vaccination/Date Given: Yes - Review of Systems Constitutional: No Symptoms Eyes: No Symptoms Ears, Nose, & Throat: No Symptoms Respiratory: No Symptoms Cardiac: No Symptoms Abdominal/Gastrointestinal: No Symptoms Genitourinary Symptoms: No Symptoms Musculoskeletal: Fall, Joint Swelling (right ankle and foot) - Past Medical History Pertinent Past Medical History: Yes Neurological History: Stroke ENT History: No Pertinent History Cardiac History: Arrhythmia Respiratory History: No Pertinent History Endocrine Medical History: Diabetes Type II Musculoskeletal History: No Pertinent History GI Medical History: No Pertinent History History: No Pertinent History Psycho-Social History: No Pertinent History Male Reproductive Disorders: No Pertinent History Other Medical History: Patient states he needs a heart transplant. - Past Surgical History Past Surgical History: Yes Neuro Surgical History: No Pertinent History Cardiac: Other, Pacemaker Respiratory: No Pertinent History Gastrointestinal: No Pertinent History Genitourinary: No Pertinent History Musculoskeletal: No Pertinent History Male Surgical History: No Pertinent History Other Surgical History: hernia repair, HEART SURGERY WHEN HE WAS 6YRS OLD - Social History Smoking Status: Never smoker Exposure to second hand smoke: Yes Drug Use: none Patient Lives Alone: Yes - Nursing Vital Signs Nursing Vital Signs: Initial Vital Signs Temperature 99.2 F 02/15/19 07:05 Pulse Rate 71 02/15/19 07:05 Blood Pressure 163/96 02/15/19 07:05 O2 Sat by Pulse Oximetry 99 02/15/19 07:05 Pain Scale Pain Intensity 9 - Physical Exam General Appearance: no apparent distress Eyes, Ears, Nose, Throat Exam: normal ENT inspection Neck Exam: normal inspection Cardiovascular/Respiratory Exam: chest non-tender Back Exam: normal inspection Ankle Exam: right ankle: limited range of motion, pain, soft tissue tenderness Foot Exam: right foot: limited range of motion, pain, soft tissue tenderness SpO2: 99 - Course Nursing assessment & vital signs reviewed: Yes - Radiology Exams Foot X-ray Interpretation: Interpreted by me, Reviewed by me, Negative, No Fracture Ankle X-ray Interpretation: Interpreted by me, Reviewed by me, Negative, No Fracture Lower Leg X-ray Interpretation: Interpreted by me, Reviewed by me, Negative, No Fracture Ordered Tests: Active Orders 24 hr Category Date Time Status ANKLE (3 VIEWS) Stat Exams 02/15/19 07:22 Taken FOOT (MINIMUM 3 VIEWS) Stat Exams 02/15/19 07:23 Taken LOWER LEG Stat Exams 02/15/19 07:23 Taken - Progress Progress: unchanged, pain not gone completely Counseled pt/family regarding: diagnosis, need for follow-up, rad results - Departure Departure Disposition: Home Clinical Impression: Sprain of ankle, right Qualifiers: Encounter type: initial encounter Involved ligament of ankle: unspecified ligament Qualified Code(s): S93.401A - Sprain of unspecified ligament of right ankle, initial encounter Condition: Stable Critical Care Time: No Referrals: NATHALY LAZAR [Primary Care Provider] - Instructions: Ankle Sprain (DC), Foot Sprain (DC), Ankle Sprain Additional Instructions: Discharge/Care Plan EDOUARD ARRINGTON JR was seen on 02/15/19 in the Emergency Room. The patient was counseled regarding Diagnosis,Lab results, Imaging studies, need for follow up and when to return to the Emergency Room. Prescriptions given: Discharge Note I have spoken with the patient and/or caregivers. I have explained the patient' s condition, diagnosis and treatment plan based on the information available to me at this time. I have answered the patient's and/or caregiver's questions and addressed any concerns. The patient and/or caregivers have as good understanding of the patient's diagnosis, condition and treatment plan as can be expected at this point. The vital signs have been stable. The patient's condition is stable and appropriate for discharge from the emergency department. The patient will pursue further outpatient evaluation with the primary care physician or other designated or consulting physician as outlined in the discharge instructions. The patient and/or caregivers are agreeable to this plan of care and follow-up instructions have been explained in detail. The patient and/or caregivers have received these instruction. The patient/and or caregivers are aware that any significant change in condition or worsening of symptoms should prompt an immediate return to this or the closest emergency department or call 911. Plan of Treatment: MURPHY GOMEZEDOUARD AMBRIZ was seen on 02/15/19 n the Emergency Room. At that time you were treated for an emergent condition, during your visit Laboratory, Radiology and/or other procedures may have been ordered. It is very important that you follow-up with your Primary Care Physician NATHALY LAZAR within the next 24-48 hours to review your Emergency Room visit and the final results of testing that was ordered. Some test results such as Urine Cultures, Blood Cultures, and other cultures if ordered will not be finalized for 24-48 hours. If you do not have a Primary Care Provider please call the medical records department at [phone] ext [phone] to obtain a copy of your results or you may sign into our patient portal to obtain these results by visiting us @ [email or web address] and completing the following steps: 1. Click on the Patient Portal link 2. Click the Patient Self Enrollment Link to complete the enrollment form and entering your 3. Once the enrollment form is completed you will receive an email with a temporary ID and password at the email address you provided. 4. Next choose a user name and password. Your user name must be at least 4 characters long and your password must be at least 4 characters long. 5. Choose a security question from the list and provide your answer to the question. If you already have signed into the Health Portal you may access your Health Care Information 19/02 by the following steps: 1. Login to our website @ [email or web address] 2. Enter your original user name and password. FAQS The [facility] Health Portal is an online tool that contains your Lab Results, Radiology Reports, Visit History, Discharge Instructions and Health Summary Lab and Radiology Results will not be available for 72 hours on the portal. The Portal is a secure site, passwords are encryted and URLs are re-written so they cannot be copied and pasted. You and authorized family members are the only ones who can access your Portal. Also there is a timeout feature that protects your information if you leave the Portal page open. If you have technical difficulty please use the Contact Us link on the page this will allow you to submit any questions you have regarding the Portal or you may contact the Medical Record Department at [phone] ext [phone]. Prescriptions: Naproxen 375 mg [Naprosyn 375 mg] 375 mg PO TID #20
[2019-02-15] MEDS ORDERED: TORAdol 30 mg Injection IM ONE (08:19)
[2019-02-15] MEDS ORDERED: TORAdol 30 mg Injection ONE (08:20)
--- NOTE | 2019-02-15 09:59 | XRAY ---
Indication: Pain following fall. Comparison: None 2 views of the right lower leg demonstrates small tibial tuberosity spur. No other bony, articular, or soft tissue abnormalities.
--- NOTE | 2019-02-15 09:59 | XRAY ---
Indication: Pain following fall. Comparison: None 3 views of the right ankle demonstrates mild soft tissue swelling, small plantar heel spur, and faint vascular calcifications. No other bony, articular, or soft tissue abnormalities.
--- NOTE | 2019-02-15 10:01 | XRAY ---
Indication: Pain following fall. Comparison: None 3 nonweightbearing views of the right foot demonstrates small spurring of the plantar calcaneus and base 5th metatarsal. No other bony, articular, or soft tissue abnormalities.
== END 2019-02-15 08:46 | disposition home or self-care (01) ==
LOC: ED 07:03
DX: S93.401A Sprain of unspecified ligament of right ankle, initial encounter (principal); W19.XXXA Unspecified fall, initial encounter; E11.9 Type 2 diabetes mellitus without complications
CPT/HCPCS: 73590; 73610; 73630; 96372; 99284; J1885